=== PATIENT | male | born 1965 | race Caucasian/White ===

== ENCOUNTER 2016-09-04 04:40 | Emergency (ER) | payer OTHER ==
[~2016-09-04] VITALS: Ht 182.9 cm; Wt 98.0 kg
[~2016-09-04 04:40] MED LIST: CARVEDILOL12.5 MG PO; CELECOXIB200 MG PO; COLCRYS0.6 MG PO; CRESTOR10 MG PO; ESCITALOPRAM OX10 MG PO; FENOFIBRATE145 M1 PO; LIPITOR5 MG PO; MOTRIN600 MG PO; PERCOCET 5/31 TABLET PO; ULORIC40 MG PO; VALIUM5 MG PO
[2016-09-04 05:06] LABS: HEMATOCRIT 45.9 % (38.0-50.0); MCH 30.7 PG (29.0-34.0); MCV 90.4 FL (86-99); PLATELET COUNT 216 K/uL (156-360); RBC DIS.WIDTH-CV 12.1 % (11.8-14.6); RED BLOOD COUNT 5.08 M/uL (4.00-5.50); WHITE BLOOD COUNT 4.7 K/uL (4.1-10.2)
[2016-09-04 05:16] LABS: CHLORIDE 105 mEq/L (99-109); POTASSIUM 4.9 mEq/L (3.7-5.4); SODIUM 142 mEq/L (136-147)
[2016-09-04 05:18] LABS: GLUCOSE 122 mg/dL (70-99)
[2016-09-04 05:19] LABS: ANION GAP 12 MEQ/L (2-14)
[2016-09-04 05:20] LABS: TOTAL BILIRUBIN 0.7 mg/dL (0.0-1.0)
[2016-09-04 05:21] LABS: ALKALINE PHOSPHATASE 53 IU/L (3-129)
[2016-09-04 05:22] LABS: GFR ESTIMATE (CALCULATED) > 59 mL/min/
[2016-09-04 05:23] LABS: UREA NITROGEN (BUN) 14 mg/dL (9-23)
[2016-09-04 06:30] LABS: LIPASE 84 U/L (1.0-51.0)
[2016-09-04 06:48] LABS: ADD MIUA? NO; BILIRUBIN NEGATIVE; BLOOD NEGATIVE; COLOR YELLOW ((YELLOW)); GLUCOSE (STRIP) NEGATIVE; KETONES NEGATIVE; LEUKOCYTES NEGATIVE; NITRITE NEGATIVE; PROTEIN (STRIP) 30; SPECIFIC GRAVITY 1.016 (1.000-1.030); UCUL ADDED? NO; UROBILINOGEN 0.2 MG/DL (0.2-1.0)
[2016-09-04] MEDS ORDERED: PROTONIX40 MG PO (09:59)
[2016-09-04 10:10] VITALS: BP 163/103
== END 2016-09-04 10:22 | disposition home or self-care (01) ==
LOC: EME 04:40
DX: R10.13 Epigastric pain (principal); R74.8 Abnormal levels of other serum enzymes; I10 Essential (primary) hypertension; E78.5 Hyperlipidemia, unspecified; F17.200 Nicotine dependence, unspecified, uncomplicated
CPT/HCPCS: 74022; 76705; 80053; 81003; 83690; 85027; 93005; 99281; 99284